=== PATIENT | male | born 1975 | race Caucasian/White ===

== ENCOUNTER 2018-01-13 18:33 | Emergency (ER) | payer OTHER ==
--- NOTE | 2018-01-13 19:40 | UC ---
Lower Extremity/Ankle HPI - HPI Summary HPI Summary: Yogesh is a 42-year-old male with a 5-6 month history of right calf pain. His calf begins to hurt after he walks approximately a half a mile. The pain disappears completely if he stops and rests. These symptoms have not been worsening over the course of the past 5-6 months. 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 Standing all day and walking short distances do not bother his calf at all. He is a smoker. He has been advised by his physicians to stop smoking. He has a history of high blood pressure. - History of Current Complaint Chief Complaint: UCLowerExtremity Stated Complaint: RIGHT LEG BURNING WHEN WALKING Time Seen by Provider: 01/13/18 19:22 Hx Obtained From: Patient Onset/Duration: Gradual Onset, Lasting Minutes Severity Initially: Moderate Severity Currently: None Pain Intensity: 0 Pain Scale Used: 0-10 Numeric Aggravating Factor(s): Ambulation Alleviating Factor(s): Rest Able to Bear Weight: Yes - Allergies/Home Medications Allergies/Adverse Reactions: Allergies Allergy/AdvReac Type Severity Reaction Status Date / Time acetaminophen Allergy Hives Verified 01/13/18 19:07 [From Tylenol Cold Multi-Sympt Night] amoxicillin Allergy Hives Verified 01/13/18 19:07 chlorpheniramine Allergy Hives Verified 01/13/18 19:07 [From Tylenol Cold Multi-Sympt Night] dextromethorphan Allergy Hives Verified 01/13/18 19:07 [From Tylenol Cold Multi-Sympt Night] doxylamine Allergy Hives Verified 01/13/18 19:07 [From Tylenol Cold Multi-Sympt Night] phenylephrine Allergy Hives Verified 01/13/18 19:07 [From Tylenol Cold Multi-Sympt Night] Home Medications: Home Medications Lisinopril TAB* [Prinivil TAB*] 5 mg PO DAILY 01/13/18 [History Confirmed ] PMH/Surg Hx/FS Hx/Imm Hx Previously Healthy: Yes Cardiovascular History: Hypertension Respiratory History: COPD - Surgical History Surgical History: Yes Surgery Procedure, Year, and Place: surgery on right hand - Family History Known Family History: Positive: Cardiac Disease, Hypertension, Diabetes - Social History Alcohol Use: Occasionally Substance Use Type: Marijuana Smoking Status (MU): Heavy Every Day Tobacco Smoker Cessation Counseling: Patient Advised to Stop Review of Systems Constitutional: Negative Skin: Negative Eyes: Negative ENT: Negative Respiratory: Negative Cardiovascular: Negative Gastrointestinal: Negative Genitourinary: Negative Motor: Negative Neurovascular: Negative Musculoskeletal: Myalgia Neurological: Negative Psychological: Negative Is Patient Immunocompromised?: No All Other Systems Reviewed And Are Negative: Yes Physical Exam Triage Information Reviewed: Yes Appearance: Well-Appearing, No Pain Distress, Well-Nourished, Thin Vital Signs: Initial Vital Signs Temp 98.4 F 01/13/18 18:56 Pulse 104 01/13/18 18:56 Resp 18 01/13/18 18:56 BP 151/100 01/13/18 18:56 Pulse Ox 100 01/13/18 18:56 Vital Signs Reviewed: Yes Eyes: Positive: Conjunctiva Clear ENT: Positive: Hearing grossly normal. Negative: Nasal congestion, Nasal drainage, Trismus, Muffled voice, Hoarse voice Respiratory: Positive: No respiratory distress, No accessory muscle use, Wheezing. Negative: Respiratory distress, Decreased breath sounds Cardiovascular: Positive: RRR, No Murmur Abdomen Description: Positive: Nontender, Soft. Negative: Bruit Musculoskeletal: Positive: Strength Intact, ROM Intact, No Edema, Other: - NO HAIR LOWER LEGS FROM CALF DOWN/BILAT DP PULSES Neurological: Positive: Alert Psychological Exam: Normal Skin Exam: Normal, Other - GOOD CAP REFILL Lower Extremity Course/Dx - Differential Dx/Diagnosis Provider Diagnoses: CLAUDICATION Discharge - Sign-Out/Discharge Documenting (check all that apply): Patient Departure - Discharge Plan Condition: Stable Disposition: HOME Patient Education Materials: Peripheral Vascular Disease (ED) Referrals: Marissa Dubon PA [Primary Care Provider] - As Soon As Possible Additional Instructions: you need to STOP SMOKING to ER for new or worsening symptoms THIS MAY BE DUE TO CLAUDICATION AND NEEDS FURTHER INVESTIGATION - Billing Disposition and Condition Condition: STABLE Disposition: Home
== END 2018-01-13 19:45 | disposition home or self-care (01) ==
LOC: UCCORT 18:33
DX: I73.9 Peripheral vascular disease, unspecified (principal); F17.210 Nicotine dependence, cigarettes, uncomplicated; Z88.6 Allergy status to analgesic agent; Z88.0 Allergy status to penicillin; Z88.8 Allergy status to other drugs, medicaments and biological substances; I10 Essential (primary) hypertension
CPT/HCPCS: 99201; G0463